=== PATIENT | female | born 1940 | race Caucasian/White ===

== ENCOUNTER 2017-10-29 20:39 | Inpatient (IN) | payer MEDICARE ==
[~2017-10-29] VITALS: Ht 162.6 cm; Wt 55.5 kg
[~2017-10-29 20:39] MED LIST: ACID1TAB7 PO; AMIO200T PO; AMLO2.5T PO; AMLO5TAB2 PO; AMLO5TAB4 PO; AMOX250S6 PO; ASPI-621 PO; BISA10SU65 PR; CEFD300C37 PO; CIPR500T87 PO; CYCL-259 PO; CYCL5TAB PO; DOCU-131 PO; ENOX40SY4 SQ; ERGO500017 PO; FENT1PAT74 PO; FENT1PAT74 TD; FERR325T18 PO; FURO-92 PO; GABA-826 PO; GABA300C10 PO; HYDR-3237 PO; HYDR473S51 PO; LEVO500T8 PO; LEVO50TA PO; LEVO750T26 PO; LISI-170 PO; LORA-445 PO; LORA-446 PO; LORA0.5T PO; METH2.5T PO; METO-95 PO; METO25TA35 PO; METO50TA82 PO; METR500T8 PO; MONT10TA9 PO; NYST1000 PO; OMEP10CA4 PO; ONDA4TAB7 PO; OXYC1TAB7 PO; OXYC5POW PO; PANT40TA3 PO; POLY17PO5 PO; POTA20TA14 PO; PRED-298 PO; SENN1TAB7 PO; SERT100T PO; SERT50TA PO; VANC250C12 PO; [UNRECOGNIZED DRUG - CODE] PO
[2017-10-29] MEDS ORDERED: SODIUM CHLORIDE 0.9% 1,000 ML IV ONE (21:46)
[2017-10-29] MEDS ORDERED: ACETAMINOPHEN 325 MG TABLET PO ONE (22:00)
[2017-10-29] MEDS ORDERED: ACETAMINOPHEN 325 MG TABLET ONE (22:16)
[2017-10-29 22:21] LABS: HEMOGLOBIN 13.3 g/dL (11.7-16.4); WHITE BLOOD COUNT 4.7 x10^3/uL (3.4-10)
[2017-10-29] MEDS ORDERED: NALOXONE 0.4 MG/ML, 1ML ONE (22:25)
[2017-10-29] MEDS ORDERED: SODIUM CHLORIDE 0.9% 1,000ML IVBOLUS ONE (22:30)
[2017-10-29] MEDS ORDERED: NALOXONE 0.4 MG/ML, 1ML IVPush ONE (22:30)
[2017-10-29 22:35] LABS: IS PT STATUS REG ER OR PRE ER? YES
[2017-10-29 22:40] LABS: ASPARTATE AMINO TRANSFERASE 17 U/L (15-37); BLOOD UREA NITROGEN 13 mg/dL (7-18)
[2017-10-29] MEDS ORDERED: CEFTRIAXONE PMX 1GM/50ML 50 ML ONE (23:13)
[2017-10-29] MEDS ORDERED: CEFTRIAXONE PMX 1GM/50ML 50 ML IVPB ONE (23:30)
[2017-10-29] MEDS ORDERED: AZITHROMYCIN 500 MG in SODIUM CHLORIDE 0.9% 250 ML IVPB ONE (23:30)
[2017-10-29 23:33] LABS: RAPID INFLUENZA A Negative (Negative); RAPID INFLUENZA B Negative (Negative)
[2017-10-30] MEDS ORDERED: POLYETHYLENE GLYCOL 17 GM PACKET PO PRN (00:30)
[2017-10-30] MEDS: MONTELUKAST 10 MG TABLET PO SCH ×2 (00:30→21:09)
[2017-10-30] MEDS: GABAPENTIN 300 MG CAPSULE PO SCH ×4 (00:30→21:09)
[2017-10-30] MEDS: LACTOBACILLUS CHEW TABLET PO SCH ×4 (00:30→21:08)
[2017-10-30] MEDS ORDERED: BISACODYL 10 MG SUPP PR PRN (00:30)
[2017-10-30] MEDS: AZITHROMYCIN 500 MG in SODIUM CHLORIDE 0.9% 250 ML IV SCH (00:31)
[2017-10-30] MEDS: CEFTRIAXONE PMX 1GM/50ML 50 ML IV SCH (00:31)
[2017-10-30] MEDS: SODIUM CHLORIDE 0.9% 1,000 ML IV SCH ×2 (01:04→15:11)
[2017-10-30] MEDS: HEPARIN 5,000 UNITS/ML, 1ML SQ SCH ×3 (01:06→16:18)
[2017-10-30 02:13] VITALS: BP 114/72
[2017-10-30 05:35] LABS: HEMATOCRIT 40.9 % (34.6-47.8); HEMOGLOBIN 13.5 g/dL (11.7-16.4); WHITE BLOOD COUNT 4.4 x10^3/uL (3.4-10)
[2017-10-30 05:57] LABS: BLOOD UREA NITROGEN 11 mg/dL (7-18)
[2017-10-30 06:01] LABS: ASPARTATE AMINO TRANSFERASE 73 U/L (15-37)
[2017-10-30] MEDS: ASPIRIN 81 MG TABLET EC PO SCH (06:23)
[2017-10-30] MEDS: LEVOTHYROXINE 50 MCG TABLET PO SCH (06:23)
[2017-10-30] MEDS ORDERED: METHOTREXATE 2.5 MG TABLET PO SCH (08:00)
[2017-10-30] MEDS: ONDANSETRON 2MG/ML, 2ML IVPush PRN ×2 (08:07→19:29)
[2017-10-30] MEDS: SENNA/DOCUSATE TABLET PO SCH (08:41)
[2017-10-30] MEDS: SERTRALINE 50MG TABLET PO SCH (08:43)
[2017-10-30] MEDS: METOPROLOL TARTRATE 25 MG TABLET PO SCH ×2 (08:43→21:09)
[2017-10-30] MEDS: ERGOCALCIFEROL 50,000 UNIT CAPSULE PO SCH (08:43)
[2017-10-30] MEDS: AMLODIPINE 5 MG TABLET PO SCH (08:43)
[2017-10-30] MEDS ORDERED: POTASSIUM CHLORIDE 20 MEQ TAB.ER.PRT PO SCH (09:00)
[2017-10-30 09:26] VITALS: BP 128/71
[2017-10-30 14:39] VITALS: BP 123/70
[2017-10-30] MEDS ORDERED: METHOTREXATE 2.5 MG TABLET PO ONE (20:00)
[2017-10-30 20:06] VITALS: BP 149/76
[2017-10-30] MEDS: ACETAMINOPHEN 325 MG TABLET PO PRN (22:09)
[2017-10-31] MEDS: HEPARIN 5,000 UNITS/ML, 1ML SQ SCH ×3 (00:22→17:10)
[2017-10-31] MEDS: CEFTRIAXONE PMX 1GM/50ML 50 ML IV SCH ×2 (00:22→23:59)
[2017-10-31] MEDS: AZITHROMYCIN 500 MG in SODIUM CHLORIDE 0.9% 250 ML IV SCH (00:30)
[2017-10-31 02:40] VITALS: BP 136/72
[2017-10-31] MEDS: LEVOTHYROXINE 50 MCG TABLET PO SCH (05:19)
[2017-10-31] MEDS: ASPIRIN 81 MG TABLET EC PO SCH (05:19)
[2017-10-31] MEDS: SODIUM CHLORIDE 0.9% 1,000 ML IV SCH ×2 (05:20→16:19)
[2017-10-31 07:08] VITALS: BP 162/75
[2017-10-31 08:58] VITALS: BP 143/83
[2017-10-31] MEDS: SERTRALINE 50MG TABLET PO SCH (08:59)
[2017-10-31] MEDS: AMLODIPINE 5 MG TABLET PO SCH (09:00)
[2017-10-31] MEDS: GABAPENTIN 300 MG CAPSULE PO SCH ×3 (09:00→22:22)
[2017-10-31] MEDS: SENNA/DOCUSATE TABLET PO SCH (09:00)
[2017-10-31] MEDS: LACTOBACILLUS CHEW TABLET PO SCH ×3 (09:01→22:22)
[2017-10-31] MEDS: METOPROLOL TARTRATE 25 MG TABLET PO SCH ×2 (09:01→22:22)
[2017-10-31 13:40] VITALS: BP 127/75
[2017-10-31 20:17] VITALS: BP 147/73
[2017-10-31] MEDS ORDERED: ZOLPIDEM 5MG TABLET PO PRN (22:00)
[2017-10-31] MEDS: MONTELUKAST 10 MG TABLET PO SCH (22:22)
[2017-11-01] MEDS: AZITHROMYCIN 500 MG in SODIUM CHLORIDE 0.9% 250 ML IV SCH (01:03)
[2017-11-01 02:12] VITALS: BP 149/79
[2017-11-01] MEDS: ACETAMINOPHEN 325 MG TABLET PO PRN (03:00)
[2017-11-01] MEDS: ASPIRIN 81 MG TABLET EC PO SCH (05:38)
[2017-11-01] MEDS: LEVOTHYROXINE 50 MCG TABLET PO SCH (05:39)
[2017-11-01] MEDS: SODIUM CHLORIDE 0.9% 1,000 ML IV SCH (05:42)
[2017-11-01 05:54] LABS: BLOOD UREA NITROGEN 8 mg/dL (7-18)
[2017-11-01 08:45] VITALS: BP 119/72
[2017-11-01] MEDS: SENNA/DOCUSATE TABLET PO SCH (09:00)
[2017-11-01] MEDS: LACTOBACILLUS CHEW TABLET PO SCH ×3 (09:03→19:30)
[2017-11-01] MEDS: AMLODIPINE 5 MG TABLET PO SCH (09:03)
[2017-11-01] MEDS: GABAPENTIN 300 MG CAPSULE PO SCH ×3 (09:03→22:19)
[2017-11-01] MEDS: METOPROLOL TARTRATE 25 MG TABLET PO SCH ×2 (09:03→19:30)
[2017-11-01] MEDS: SERTRALINE 50MG TABLET PO SCH (09:03)
[2017-11-01] MEDS: HEPARIN 5,000 UNITS/ML, 1ML SQ SCH ×3 (09:04→17:44)
[2017-11-01 13:15] VITALS: BP 158/71
[2017-11-01] MEDS: ONDANSETRON 2MG/ML, 2ML IVPush PRN (14:20)
[2017-11-01] MEDS ORDERED: MAGNESIUM SULFATE PMX 2GM/50ML 50 ML IV ONE ×2 (17:00→20:30)
[2017-11-01] MEDS: D5%-0.9% NACL+KCL 20MEQ 1,000 ML IV SCH (18:15)
[2017-11-01] MEDS: MONTELUKAST 10 MG TABLET PO SCH (19:30)
[2017-11-01 21:05] VITALS: BP 133/77
[2017-11-01] MEDS: GUAIFENESIN/DM 200-20MG, 10ML UDC PO PRN (22:18)
[2017-11-02] MEDS: ACETAMINOPHEN 325 MG TABLET PO PRN ×2 (00:07→21:10)
[2017-11-02] MEDS: CEFTRIAXONE PMX 1GM/50ML 50 ML IV SCH (00:08)
[2017-11-02] MEDS: HEPARIN 5,000 UNITS/ML, 1ML SQ SCH ×3 (01:59→18:51)
[2017-11-02] MEDS: AZITHROMYCIN 500 MG in SODIUM CHLORIDE 0.9% 250 ML IV SCH (01:59)
[2017-11-02 02:11] VITALS: BP 132/80
[2017-11-02] MEDS: ONDANSETRON 2MG/ML, 2ML IVPush PRN (05:24)
[2017-11-02] MEDS: LEVOTHYROXINE 50 MCG TABLET PO SCH (05:24)
[2017-11-02] MEDS: ASPIRIN 81 MG TABLET EC PO SCH (05:24)
[2017-11-02 07:29] VITALS: BP 154/86
[2017-11-02] MEDS: SENNA/DOCUSATE TABLET PO SCH (09:00)
[2017-11-02] MEDS: SERTRALINE 50MG TABLET PO SCH (11:02)
[2017-11-02] MEDS: GABAPENTIN 300 MG CAPSULE PO SCH ×3 (11:02→21:02)
[2017-11-02] MEDS: LACTOBACILLUS CHEW TABLET PO SCH ×3 (11:02→21:02)
[2017-11-02] MEDS: METOPROLOL TARTRATE 25 MG TABLET PO SCH ×2 (11:03→21:00)
[2017-11-02] MEDS: AMLODIPINE 5 MG TABLET PO SCH (11:04)
[2017-11-02] MEDS: LOPERAMIDE 2 MG CAPSULE PO PRN (12:25)
[2017-11-02] MEDS: D5%-0.9% NACL+KCL 20MEQ 1,000 ML IV SCH (12:25)
[2017-11-02] MEDS ORDERED: MAGNESIUM SULFATE PMX 2GM/50ML 50 ML IV ONE (12:30)
[2017-11-02 13:41] VITALS: BP 125/64
[2017-11-02 21:01] VITALS: BP 106/63
[2017-11-02] MEDS: MONTELUKAST 10 MG TABLET PO SCH (21:02)
[2017-11-03] MEDS: CEFTRIAXONE PMX 1GM/50ML 50 ML IV SCH (00:51)
[2017-11-03 01:28] VITALS: BP 111/60
[2017-11-03] MEDS: AZITHROMYCIN 500 MG in SODIUM CHLORIDE 0.9% 250 ML IV SCH (01:34)
[2017-11-03] MEDS: HEPARIN 5,000 UNITS/ML, 1ML SQ SCH ×3 (01:34→17:49)
[2017-11-03] MEDS: ASPIRIN 81 MG TABLET EC PO SCH (05:47)
[2017-11-03] MEDS: LEVOTHYROXINE 50 MCG TABLET PO SCH (05:47)
[2017-11-03 06:13] LABS: HEMATOCRIT 37.5 % (34.6-47.8); HEMOGLOBIN 12.2 g/dL (11.7-16.4); WHITE BLOOD COUNT 2.7 x10^3/uL (3.4-10)
[2017-11-03 06:17] LABS: BLOOD UREA NITROGEN 6 mg/dL (7-18)
[2017-11-03 08:11] VITALS: BP 117/62
[2017-11-03] MEDS: SENNA/DOCUSATE TABLET PO SCH (09:00)
[2017-11-03] MEDS: AMLODIPINE 5 MG TABLET PO SCH (09:38)
[2017-11-03] MEDS: ACETAMINOPHEN 325 MG TABLET PO PRN ×3 (09:38→21:40)
[2017-11-03] MEDS: GABAPENTIN 300 MG CAPSULE PO SCH ×3 (09:39→20:01)
[2017-11-03] MEDS: LOPERAMIDE 2 MG CAPSULE PO PRN (09:39)
[2017-11-03] MEDS: SERTRALINE 50MG TABLET PO SCH (09:40)
[2017-11-03] MEDS: LACTOBACILLUS CHEW TABLET PO SCH ×3 (09:40→20:01)
[2017-11-03] MEDS: METOPROLOL TARTRATE 25 MG TABLET PO SCH ×2 (09:40→20:01)
[2017-11-03 14:45] VITALS: BP 114/63
[2017-11-03] MEDS: ONDANSETRON 2MG/ML, 2ML IVPush PRN (18:02)
[2017-11-03 20:01] VITALS: BP 112/70
[2017-11-03] MEDS: MONTELUKAST 10 MG TABLET PO SCH (20:01)
[2017-11-03] MEDS: GUAIFENESIN/DM 200-20MG, 10ML UDC PO PRN (20:02)
[2017-11-04] MEDS: CEFTRIAXONE PMX 1GM/50ML 50 ML IV SCH (00:24)
[2017-11-04] MEDS: AZITHROMYCIN 500 MG in SODIUM CHLORIDE 0.9% 250 ML IV SCH (02:02)
[2017-11-04] MEDS: HEPARIN 5,000 UNITS/ML, 1ML SQ SCH ×3 (02:03→17:22)
[2017-11-04 02:06] VITALS: BP 111/62
[2017-11-04] MEDS: LEVOTHYROXINE 50 MCG TABLET PO SCH (06:09)
[2017-11-04] MEDS: ASPIRIN 81 MG TABLET EC PO SCH (06:09)
[2017-11-04 08:38] VITALS: BP 119/66
[2017-11-04] MEDS: SENNA/DOCUSATE TABLET PO SCH (09:00)
[2017-11-04] MEDS: LACTOBACILLUS CHEW TABLET PO SCH ×3 (09:42→19:50)
[2017-11-04] MEDS: SERTRALINE 50MG TABLET PO SCH (09:42)
[2017-11-04] MEDS: GABAPENTIN 300 MG CAPSULE PO SCH ×3 (09:42→19:50)
[2017-11-04] MEDS: AMLODIPINE 5 MG TABLET PO SCH (09:42)
[2017-11-04] MEDS: METOPROLOL TARTRATE 25 MG TABLET PO SCH ×2 (09:43→19:50)
[2017-11-04 13:30] VITALS: BP 110/56
[2017-11-04] MEDS: ACETAMINOPHEN 325 MG TABLET PO PRN (15:48)
[2017-11-04 19:38] VITALS: BP 107/60
[2017-11-04] MEDS: GUAIFENESIN/DM 200-20MG, 10ML UDC PO PRN (19:50)
[2017-11-04] MEDS: MONTELUKAST 10 MG TABLET PO SCH (19:50)
[2017-11-05] MEDS: CEFTRIAXONE PMX 1GM/50ML 50 ML IV SCH (00:09)
[2017-11-05 00:41] VITALS: BP 109/63
[2017-11-05] MEDS: HEPARIN 5,000 UNITS/ML, 1ML SQ SCH ×3 (00:48→16:22)
[2017-11-05] MEDS: ACETAMINOPHEN 325 MG TABLET PO PRN ×2 (00:48→17:35)
[2017-11-05 02:52] LABS: HEMATOCRIT 35.6 % (34.6-47.8); HEMOGLOBIN 11.5 g/dL (11.7-16.4); WHITE BLOOD COUNT 3.2 x10^3/uL (3.4-10)
[2017-11-05 03:02] LABS: BLOOD UREA NITROGEN 9 mg/dL (7-18)
[2017-11-05] MEDS: ASPIRIN 81 MG TABLET EC PO SCH (06:09)
[2017-11-05] MEDS: LEVOTHYROXINE 50 MCG TABLET PO SCH (06:11)
[2017-11-05 06:55] VITALS: BP 125/77
[2017-11-05] MEDS: SENNA/DOCUSATE TABLET PO SCH (09:00)
[2017-11-05] MEDS: GABAPENTIN 300 MG CAPSULE PO SCH ×3 (09:00→21:01)
[2017-11-05] MEDS: LOPERAMIDE 2 MG CAPSULE PO PRN (09:00)
[2017-11-05] MEDS: LACTOBACILLUS CHEW TABLET PO SCH ×3 (09:01→21:01)
[2017-11-05] MEDS: METOPROLOL TARTRATE 25 MG TABLET PO SCH ×2 (09:01→21:01)
[2017-11-05] MEDS: SERTRALINE 50MG TABLET PO SCH (09:01)
[2017-11-05] MEDS: AMLODIPINE 5 MG TABLET PO SCH (09:01)
[2017-11-05 12:45] VITALS: BP 117/74
[2017-11-05] MEDS: ONDANSETRON 2MG/ML, 2ML IVPush PRN (16:19)
[2017-11-05 20:57] VITALS: BP 107/67
[2017-11-05] MEDS: MONTELUKAST 10 MG TABLET PO SCH (21:01)
[2017-11-06] MEDS: CEFTRIAXONE PMX 1GM/50ML 50 ML IV SCH (00:28)
[2017-11-06] MEDS: HEPARIN 5,000 UNITS/ML, 1ML SQ SCH ×3 (00:28→17:30)
[2017-11-06 02:01] VITALS: BP 94/59
[2017-11-06 03:15] VITALS: BP 104/69
[2017-11-06] MEDS: ASPIRIN 81 MG TABLET EC PO SCH (06:54)
[2017-11-06] MEDS: LEVOTHYROXINE 50 MCG TABLET PO SCH (06:54)
[2017-11-06] MEDS ORDERED: METHOTREXATE 2.5 MG TABLET PO SCH (08:00)
[2017-11-06 08:15] VITALS: BP 118/76
[2017-11-06] MEDS: SENNA/DOCUSATE TABLET PO SCH (09:00)
[2017-11-06] MEDS: GABAPENTIN 300 MG CAPSULE PO SCH ×2 (10:42→17:50)
[2017-11-06] MEDS: SERTRALINE 50MG TABLET PO SCH (10:43)
[2017-11-06] MEDS: AMLODIPINE 5 MG TABLET PO SCH (10:43)
[2017-11-06] MEDS: METOPROLOL TARTRATE 25 MG TABLET PO SCH (10:43)
[2017-11-06] MEDS: LACTOBACILLUS CHEW TABLET PO SCH ×2 (10:44→16:00)
[2017-11-06] MEDS: ERGOCALCIFEROL 50,000 UNIT CAPSULE PO SCH (10:49)
[2017-11-06 15:07] VITALS: BP 110/72
== END 2017-11-06 18:15 | disposition home health service (06) | DRG 91 ==
LOC: ED 23:53 → EDIP 23:57 → 4NOR 10-30 00:48
PROVIDERS: ADMIT Surgery; ATTEND Surgery
DX: G92 Toxic encephalopathy (principal); J15.9 Unspecified bacterial pneumonia; D68.69 Other thrombophilia; E86.0 Dehydration; I48.2 Chronic atrial fibrillation; E11.9 Type 2 diabetes mellitus without complications; G40.909 Epilepsy, unspecified, not intractable, without status epilepticus; E03.9 Hypothyroidism, unspecified; I10 Essential (primary) hypertension; M06.9 Rheumatoid arthritis, unspecified; M81.0 Age-related osteoporosis without current pathological fracture; Z86.73 Personal history of transient ischemic attack (TIA), and cerebral infarction without residual deficits; Z87.01 Personal history of pneumonia (recurrent); Z96.653 Presence of artificial knee joint, bilateral
CPT/HCPCS: 36415; 70450; 71010; 80048; 80053; 80307; 81003; 82140; 83735; 83880; 84100; 84484; 85025; 87040; 87070; 87205; 87324; 87400; 93005; 96361; 96365; 96375; J0456; J0696; J1644; J2310; J2405; J8610; G0479; J3475; J3480; J7030; J7050; J7512

== ENCOUNTER 2018-04-14 01:12 | Inpatient (IN) | payer MEDICARE ==
[~2018-04-14] VITALS: Ht 157.5 cm; Wt 59.0 kg
[2018-04-14] MEDS ORDERED: MORPHINE SULFATE 4 MG/ML, 1ML IVPush PRN ×2 (01:30→05:30)
[2018-04-14] MEDS ORDERED: PROPOFOL 10 MG/ML, 20ML IVPush ONE (01:30)
[2018-04-14] MEDS ORDERED: KETAMINE 10 MG/ML, 20ML IV ONE (01:30)
[2018-04-14] MEDS ORDERED: MORPHINE SULFATE 4 MG/ML, 1ML ONE (01:44)
[2018-04-14] MEDS ORDERED: PROPOFOL 10 MG/ML, 20ML ONE (01:44)
[2018-04-14] MEDS ORDERED: ONDANSETRON ODT 4 MG ONE (02:21)
[2018-04-14] MEDS ORDERED: SODIUM CHLORIDE 0.9% 1,000 ML IV ONE (02:55)
[2018-04-14 03:00] VITALS: BP 154/83
[2018-04-14] MEDS ORDERED: SODIUM CHLORIDE FLUSH 10ML SYR IVF ONE (03:00)
[2018-04-14] MEDS ORDERED: BIFI4CAP PO (03:02)
[2018-04-14] MEDS ORDERED: OXYC20TA42 PO (03:02)
[2018-04-14] MEDS ORDERED: OMEP-110 PO (03:02)
[2018-04-14] MEDS ORDERED: FOLI-17 PO (03:02)
[2018-04-14] MEDS ORDERED: PRED2.5T PO (03:02)
[2018-04-14] MEDS ORDERED: VITA1CAP PO (03:02)
[2018-04-14 03:14] LABS: BASOPHILS # (AUTO) 0.04 x10^3/uL (0-0.1); BASOPHILS % (AUTO) 0 % (0-1); EOSINOPHILS # (AUTO) 0.12 x10^3/uL (0-0.4); EOSINOPHILS % (AUTO) 1 % (1-7); LYMPHOCYTES # (AUTO) 1.42 x10^3/uL (1-3.4); LYMPHOCYTES % (AUTO) 11 % (22-44); MD NO; MEAN CORPUSCULAR HEMOGLOBIN 28.8 pg (27.0-34.8); MEAN CORPUSCULAR HGB CONC 32.6 g/dL (32.4-35.8); MEAN CORPUSCULAR VOLUME 88.3 fL (80-100); MEAN PLATELET VOLUME 8.8 fL (7.4-10.4); MONOCYTES % (AUTO) 6 % (2-9); NEUTROPHILS # (AUTO) 10.39 x10^3/uL (1.8-6.8); NEUTROPHILS % (AUTO) 82 % (42-75); PLATELET COUNT 232 x10^3/uL (130-400); RED BLOOD COUNT 4.32 x10^6/uL (3.82-5.3); RED CELL DISTRIBUTION WIDTH 18.6 % (9.6-15.2)
[2018-04-14 03:23] LABS: INTERNATIONAL NORMALIZED RATIO 0.98 (0.93-1.1); PROTHROMBIN TIME 10.1 Seconds (9.6-11.5)
[2018-04-14 03:25] LABS: ALBUMIN 3.2 g/dL (3.4-5.0); ANION GAP 5 mmol/L (5-15); CALCIUM 7.8 mg/dL (8.5-10.1); CHLORIDE 113 mmol/L (98-107); CREATININE 1.06 mg/dL (0.55-1.02)
[2018-04-14] MEDS ORDERED: ONDANSETRON ODT 4 MG PO ONE (03:30)
[2018-04-14] MEDS ORDERED: KETAMINE 100 MG/ML, 5ML IV ONE (04:00)
[2018-04-14] MEDS ORDERED: NS + 20MEQ KCL 1,000 ML IV SCH (05:35)
[2018-04-14] MEDS: LEVOTHYROXINE 50 MCG TABLET PO SCH (05:58)
[2018-04-14] MEDS ORDERED: POLYETHYLENE GLYCOL 17 GM PACKET PO PRN (06:00)
[2018-04-14] MEDS ORDERED: ACETAMINOPHEN 325 MG TABLET PO PRN (06:00)
[2018-04-14] MEDS ORDERED: ONDANSETRON 2MG/ML, 2ML IVPush PRN (06:00)
[2018-04-14] MEDS ORDERED: ENALAPRILAT 1.25 MG/ML, 2ML IV PRN (06:00)
[2018-04-14] MEDS ORDERED: DOCUSATE 100 MG CAPSULE PO PRN (06:00)
[2018-04-14] MEDS ORDERED: hydrALAzine 20 MG/ML, 1ML IV PRN (06:00)
[2018-04-14] MEDS: INSULIN LISPRO 100 UNITS/ML, PEN SQ-INSULIN SCH ×4 (06:53→20:51)
[2018-04-14 08:42] VITALS: BP 134/65
[2018-04-14] MEDS: FLORASTOR 250 MG CAPSULE PO SCH (09:13)
[2018-04-14] MEDS: LACTOBACILLUS CHEW TABLET PO SCH ×3 (09:13→20:45)
[2018-04-14] MEDS: SERTRALINE 50MG TABLET PO SCH (09:13)
[2018-04-14] MEDS: MULTIVITS,STRESS FORMULA 1 TABLET PO SCH (09:13)
[2018-04-14] MEDS: FAMOTIDINE 20 MG TABLET PO SCH ×2 (09:13→20:45)
[2018-04-14] MEDS: SENNA/DOCUSATE TABLET PO SCH (09:14)
[2018-04-14] MEDS: OxyconTIN ER 20 MG TAB.ER PO SCH ×2 (09:15→20:45)
[2018-04-14] MEDS: FOLIC ACID 1 MG TABLET PO SCH (09:15)
[2018-04-14] MEDS: METOPROLOL TARTRATE 25 MG TABLET PO SCH ×2 (09:31→20:45)
[2018-04-14 13:48] VITALS: BP 120/70
[2018-04-14] MEDS: ENOXAPARIN 40 MG/0.4 ML SQ SCH (17:02)
[2018-04-14 20:06] VITALS: BP 117/58
[2018-04-15 02:57] VITALS: BP 94/54
[2018-04-15] MEDS: OXYcodone IR 5MG TABLET PO PRN ×4 (03:24→18:43)
[2018-04-15] MEDS: LEVOTHYROXINE 50 MCG TABLET PO SCH ×2 (05:50→06:00)
[2018-04-15] MEDS: INSULIN LISPRO 100 UNITS/ML, PEN SQ-INSULIN SCH ×4 (06:08→21:00)
[2018-04-15] MEDS: SENNA/DOCUSATE TABLET PO SCH (09:00)
[2018-04-15] MEDS: METOPROLOL TARTRATE 25 MG TABLET PO SCH ×2 (09:00→20:34)
[2018-04-15] MEDS: LACTOBACILLUS CHEW TABLET PO SCH ×3 (09:00→20:34)
[2018-04-15] MEDS: MULTIVITS,STRESS FORMULA 1 TABLET PO SCH (09:00)
[2018-04-15] MEDS: FAMOTIDINE 20 MG TABLET PO SCH ×2 (09:00→20:34)
[2018-04-15] MEDS: SERTRALINE 50MG TABLET PO SCH (09:00)
[2018-04-15] MEDS: OxyconTIN ER 20 MG TAB.ER PO SCH ×2 (09:13→20:34)
[2018-04-15] MEDS: FOLIC ACID 1 MG TABLET PO SCH (09:13)
[2018-04-15] MEDS: FLORASTOR 250 MG CAPSULE PO SCH (09:14)
[2018-04-15 13:04] VITALS: BP 104/51
[2018-04-15] MEDS: ENOXAPARIN 40 MG/0.4 ML SQ SCH (16:20)
[2018-04-15 19:00] VITALS: BP 142/65
[2018-04-15] MEDS: morphine SULFATE 10 MG/ML, 1ML IVPush PRN (20:34)
[2018-04-15 23:33] VITALS: BP 155/76
[2018-04-16] MEDS: morphine SULFATE 10 MG/ML, 1ML IVPush PRN (02:15)
[2018-04-16 05:06] LABS: BASOPHILS # (AUTO) 0.04 x10^3/uL (0-0.1); BASOPHILS % (AUTO) 1 % (0-1); EOSINOPHILS # (AUTO) 0.11 x10^3/uL (0-0.4); EOSINOPHILS % (AUTO) 1 % (1-7); LYMPHOCYTES # (AUTO) 0.94 x10^3/uL (1-3.4); LYMPHOCYTES % (AUTO) 12 % (22-44); MD NO; MEAN CORPUSCULAR HEMOGLOBIN 29.7 pg (27.0-34.8); MEAN CORPUSCULAR HGB CONC 33.7 g/dL (32.4-35.8); MEAN CORPUSCULAR VOLUME 88.1 fL (80-100); MEAN PLATELET VOLUME 9.3 fL (7.4-10.4); MONOCYTES # (AUTO) 1.01 x10^3/uL (0.2-0.8); MONOCYTES % (AUTO) 12 % (2-9); NEUTROPHILS # (AUTO) 6.08 x10^3/uL (1.8-6.8); NEUTROPHILS % (AUTO) 74 % (42-75); PLATELET COUNT 142 x10^3/uL (130-400); RED BLOOD COUNT 3.31 x10^6/uL (3.82-5.3)
[2018-04-16 05:26] LABS: CHLORIDE 107 mmol/L (98-107)
[2018-04-16 05:55] LABS: MICROSCOPIC NOT IND
[2018-04-16 05:58] LABS: CULTURE INDICATED? NO
[2018-04-16 06:16] LABS: ANION GAP 8 mmol/L (5-15); CALCIUM 8.4 mg/dL (8.5-10.1); CREATININE 0.92 mg/dL (0.55-1.02)
[2018-04-16] MEDS: LEVOTHYROXINE 50 MCG TABLET PO SCH (06:19)
[2018-04-16] MEDS: OXYcodone IR 5MG TABLET PO PRN ×2 (06:19→13:53)
[2018-04-16] MEDS: INSULIN LISPRO 100 UNITS/ML, PEN SQ-INSULIN SCH ×4 (06:23→19:39)
[2018-04-16] MEDS: SENNA/DOCUSATE TABLET PO SCH (08:25)
[2018-04-16] MEDS: SERTRALINE 50MG TABLET PO SCH (08:25)
[2018-04-16] MEDS: LACTOBACILLUS CHEW TABLET PO SCH ×3 (08:25→21:01)
[2018-04-16] MEDS: FAMOTIDINE 20 MG TABLET PO SCH ×2 (08:26→21:02)
[2018-04-16] MEDS: FOLIC ACID 1 MG TABLET PO SCH (08:26)
[2018-04-16] MEDS: MULTIVITS,STRESS FORMULA 1 TABLET PO SCH (08:26)
[2018-04-16] MEDS: FLORASTOR 250 MG CAPSULE PO SCH (08:26)
[2018-04-16] MEDS: METOPROLOL TARTRATE 25 MG TABLET PO SCH ×2 (08:26→21:01)
[2018-04-16] MEDS: OxyconTIN ER 20 MG TAB.ER PO SCH ×2 (08:27→21:02)
[2018-04-16] MEDS: ACETAMINOPHEN 500 MG TABLET PO SCH ×3 (09:00→21:01)
[2018-04-16 09:07] VITALS: BP 172/73
[2018-04-16 13:43] VITALS: BP 117/74
[2018-04-16] MEDS: ENOXAPARIN 40 MG/0.4 ML SQ SCH (18:01)
[2018-04-16 20:00] VITALS: BP 138/76
[2018-04-17 02:30] VITALS: BP 167/96
[2018-04-17] MEDS: ACETAMINOPHEN 500 MG TABLET PO SCH ×4 (03:00→15:17)
[2018-04-17] MEDS: LEVOTHYROXINE 50 MCG TABLET PO SCH (05:40)
[2018-04-17] MEDS: INSULIN LISPRO 100 UNITS/ML, PEN SQ-INSULIN SCH ×3 (06:35→16:04)
[2018-04-17 06:55] VITALS: BP 161/79
[2018-04-17] MEDS: LACTOBACILLUS CHEW TABLET PO SCH ×3 (08:42→15:23)
[2018-04-17] MEDS: FAMOTIDINE 20 MG TABLET PO SCH (08:42)
[2018-04-17] MEDS: FLORASTOR 250 MG CAPSULE PO SCH (08:42)
[2018-04-17] MEDS: SERTRALINE 50MG TABLET PO SCH (08:42)
[2018-04-17] MEDS: MULTIVITS,STRESS FORMULA 1 TABLET PO SCH (08:42)
[2018-04-17] MEDS: METOPROLOL TARTRATE 25 MG TABLET PO SCH (08:42)
[2018-04-17] MEDS: SENNA/DOCUSATE TABLET PO SCH (08:42)
[2018-04-17] MEDS: OxyconTIN ER 20 MG TAB.ER PO SCH (08:42)
[2018-04-17] MEDS: FOLIC ACID 1 MG TABLET PO SCH (08:43)
[2018-04-17] MEDS ORDERED: POLYETHYLENE GLYCOL 17 GM PACKET PO SCH (10:00)
[2018-04-17] MEDS ORDERED: DOCUSATE 100 MG CAPSULE PO SCH (10:00)
[2018-04-17] MEDS ORDERED: ENOX40SY4 SQ (11:33)
[2018-04-17] MEDS ORDERED: DOCU-131 PO (11:33)
[2018-04-17] MEDS ORDERED: POLY17PO5 PO (11:33)
[2018-04-17] MEDS ORDERED: ACET500T71 PO (11:33)
[2018-04-17 14:16] VITALS: BP 150/71
[2018-04-17] MEDS: ENOXAPARIN 40 MG/0.4 ML SQ SCH (16:05)
[2018-04-17] MEDS: OXYcodone IR 5MG TABLET PO PRN (17:21)
== END 2018-04-17 17:48 | DRG 542 ==
LOC: ED 02:49 → EDIP 02:55 → 4NOR 05:07
PROVIDERS: ADMIT Family Medicine; ATTEND Family Medicine
PROC: 0JQG3ZZ Repair Right Lower Arm Subcutaneous Tissue and Fascia, Percutaneous Approach (ICD-10-PCS; 2018-04-14)
PROC: 2W38X1Z Immobilization of Right Upper Extremity using Splint (ICD-10-PCS; 2018-04-14)
PROC: 0PSCXZZ Reposition Right Humeral Head, External Approach (ICD-10-PCS; 2018-04-14)
PROC: 2W3CX1Z Immobilization of Right Lower Arm using Splint (ICD-10-PCS; 2018-04-14)
PROC: 0T9B70Z Drainage of Bladder with Drainage Device, Via Natural or Artificial Opening (ICD-10-PCS; principal; 2018-04-16)
DX: M80.021A Age-related osteoporosis with current pathological fracture, right humerus, initial encounter for fracture (principal); G93.40 Encephalopathy, unspecified; E44.0 Moderate protein-calorie malnutrition; D68.69 Other thrombophilia; S42.291A Other displaced fracture of upper end of right humerus, initial encounter for closed fracture; E11.9 Type 2 diabetes mellitus without complications; G40.909 Epilepsy, unspecified, not intractable, without status epilepticus; I48.2 Chronic atrial fibrillation; E03.9 Hypothyroidism, unspecified; G89.11 Acute pain due to trauma; I10 Essential (primary) hypertension; M06.9 Rheumatoid arthritis, unspecified; M75.100 Unspecified rotator cuff tear or rupture of unspecified shoulder, not specified as traumatic; M81.0 Age-related osteoporosis without current pathological fracture; S51.811A Laceration without foreign body of right forearm, initial encounter; W18.09XA Striking against other object with subsequent fall, initial encounter; Y93.01 Activity, walking, marching and hiking; Z66 Do not resuscitate; Z79.52 Long term (current) use of systemic steroids; Z86.73 Personal history of transient ischemic attack (TIA), and cerebral infarction without residual deficits; Z87.01 Personal history of pneumonia (recurrent); Z87.81 Personal history of (healed) traumatic fracture; Z91.81 History of falling; Z96.653 Presence of artificial knee joint, bilateral; Z68.23 Body mass index [BMI] 23.0-23.9, adult; Y92.89 Other specified places as the place of occurrence of the external cause; Y99.8 Other external cause status
CPT/HCPCS: 12002; 23675; 36415; 80048; 81003; 82040; 82962; 85025; 85610; 85730; 96361; 96374; 99152; 99153; J1650; J2704; J3480; Q0162; J2270; J7030; J7512

== ENCOUNTER 2019-03-09 16:36 | Inpatient (IN) | payer MEDICARE ==
[~2019-03-09] VITALS: Ht 154.9 cm; Wt 71.6 kg
[~2019-03-09 16:36] MED LIST changes: +ACET500T71 PO; +AMLO-150 PO; -AMLO2.5T PO; +AMLO2.5T5 PO; -AMLO5TAB2 PO; -ASPI-621 PO; +ASPI81TA45 PO; +BIFI4CAP PO; +FOLI-17 PO; +METR-90 PO; -METR500T8 PO; +OMEP-110 PO; +OXYC20TA42 PO; +PRED2.5T PO; +SENN-177 PO; -SENN1TAB7 PO; +VITA1CAP PO
--- NOTE | 2019-03-09 17:13 | NUR ---
pt to ed for mechanical glf today. hematoma to r elbow and pain to right ribs and bilateral hips. connected to monitors. htn, all other vss on 6L nc. pt non compliant with home o2 order. ra sat 88%. edmd assessmetn complete. orders received. pt at imaging at this time.
[2019-03-09] MEDS ORDERED: morphine SULFATE 10 MG/ML, 1ML IVPush ONE ×2 (17:30→18:30)
[2019-03-09] MEDS ORDERED: MORPHINE SULFATE 4 MG/ML, 1ML ONE (17:37)
--- NOTE | 2019-03-09 17:46 | NUR ---
TASK RN NOTE: PIV PLACED, PT MEDICATED PER EMAR FOR 8/10 RIGHT HIP PAIN. PT WAS WEARING OXYGEN AT 4L/MIN PRIOR TO MORPHINE ADMIN, SPO2 DECREASED TO 89% AFTER MORPHINE ADMIN. OXGYEN INCREASED TO 5L/MIN VIA NC, SATURATNG 91-92% AT THIS TIME. PT'S FAMILY AT BEDSIDE, PT A&O, RESPS EVEN AND UNLABORED. ALL RESULTS BACK, CHART UP FOR RECHECK. AWAITING MD AND DISPO AT THIS TIME.
--- NOTE | 2019-03-09 17:48 | NUR ---
PT REPORTS PAIN IMPROVING TO RIGHT HIP.
--- NOTE | 2019-03-09 17:52 | NUR ---
EDMD TO BS TO UPDATE ON POC.
[2019-03-09] MEDS ORDERED: OXYC10TA6 PO (18:05)
[2019-03-09] MEDS ORDERED: MULT-750 PO (18:05)
--- NOTE | 2019-03-09 18:09 | NUR ---
dr james spoke with dr rahman
--- NOTE | 2019-03-09 18:31 | NUR ---
LAB AT BEDSIDE
[2019-03-09 18:48] LABS: BASOPHILS # (AUTO) 0.01 x10^3/uL (0-0.1); BASOPHILS % (AUTO) 0 % (0-1); EOSINOPHILS # (AUTO) 0.09 x10^3/uL (0-0.4); EOSINOPHILS % (AUTO) 1 % (1-7); LYMPHOCYTES # (AUTO) 1.33 x10^3/uL (1-3.4); LYMPHOCYTES % (AUTO) 10 % (22-44); MD NO; MEAN CORPUSCULAR HEMOGLOBIN 30.3 pg (27.0-34.8); MEAN CORPUSCULAR VOLUME 91.9 fL (80-100); MEAN PLATELET VOLUME 7.8 fL (7.4-10.4); MONOCYTES # (AUTO) 0.61 x10^3/uL (0.2-0.8); MONOCYTES % (AUTO) 5 % (2-9); NEUTROPHILS # (AUTO) 10.94 x10^3/uL (1.8-6.8); NEUTROPHILS % (AUTO) 84 % (42-75); PLATELET COUNT 249 x10^3/uL (130-400); RED CELL DISTRIBUTION WIDTH 15.4 % (9.6-15.2)
[2019-03-09 18:59] LABS: INTERNATIONAL NORMALIZED RATIO 0.98 (0.93-1.1); PROTHROMBIN TIME 10.3 Seconds (9.6-11.5)
[2019-03-09 19:00] LABS: ALANINE AMINOTRANSFERASE 29 U/L (12-78); ALBUMIN 3.2 g/dL (3.4-5.0); ANION GAP 8 mmol/L (5-15); CHLORIDE 104 mmol/L (98-107); CREATININE 1.01 mg/dL (0.55-1.02)
[2019-03-09] MEDS ORDERED: ONDANSETRON 2MG/ML, 2ML ONE (19:02)
[2019-03-09 19:03] LABS: ALKALINE PHOSPHATASE 88 U/L (45-117); BILIRUBIN,TOTAL 0.3 mg/dL (0.2-1.0); TOTAL PROTEIN 6.7 g/dL (6.4-8.2)
--- NOTE | 2019-03-09 19:03 | NUR ---
CT waiting on nausea meds - pt is N/V
--- NOTE | 2019-03-09 19:14 | NUR ---
Task RN: Given zofran per request and MD order. Awaiting CT at this time. No other immediate needs from PT.
--- NOTE | 2019-03-09 19:17 | NUR ---
Task RN:Hospitalist at bedside for POC update.
--- NOTE | 2019-03-09 19:25 | NUR ---
Task RN:Pt to CT.
[2019-03-09] MEDS ORDERED: ONDANSETRON 2MG/ML, 2ML IVPush ONE (19:30)
--- NOTE | 2019-03-09 19:58 | NUR ---
report to crystal philippe. 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
[2019-03-09 20:00] VITALS: BP 122/85
[2019-03-09] MEDS ORDERED: POLYETHYLENE GLYCOL 17 GM PACKET PO PRN (20:00)
[2019-03-09] MEDS ORDERED: LABETALOL 5MG/ML, 20ML IVPush PRN (20:00)
[2019-03-09] MEDS ORDERED: ACETAMINOPHEN 325 MG TABLET PO PRN (20:00)
[2019-03-09] MEDS ORDERED: BISACODYL 10 MG SUPP PR PRN (20:00)
[2019-03-09] MEDS ORDERED: HEPARIN 5,000 UNITS/ML, 1ML SQ SCH (20:00)
[2019-03-09] MEDS ORDERED: ONDANSETRON 2MG/ML, 2ML IVPush PRN (20:00)
[2019-03-09] MEDS ORDERED: OxyconTIN ER 10 MG TAB.ER ONE (21:39)
[2019-03-09] MEDS: OxyconTIN ER 20 MG TAB.ER PO SCH (22:20)
[2019-03-09] MEDS: HYDROmorphone 2 MG/ML, 1ML IVPush PRN (22:21)
[2019-03-09] MEDS: METOPROLOL TARTRATE 25 MG TABLET PO SCH (22:21)
[2019-03-10 01:02] VITALS: BP 107/72
[2019-03-10 05:22] VITALS: BP 104/68
[2019-03-10] MEDS: LEVOTHYROXINE 50 MCG TABLET PO SCH (05:35)
[2019-03-10] MEDS: OMEPRAZOLE 20 MG CAPSULE.DR PO SCH (05:35)
[2019-03-10] MEDS: SODIUM CHLORIDE 0.9% 1,000 ML IV SCH ×3 (05:35→21:15)
[2019-03-10] MEDS: HYDROmorphone 2 MG/ML, 1ML IVPush PRN ×4 (05:36→19:39)
[2019-03-10 05:45] LABS: MEAN CORPUSCULAR HEMOGLOBIN 29.7 pg (27.0-34.8); MEAN CORPUSCULAR HGB CONC 32.5 g/dL (32.4-35.8); MEAN CORPUSCULAR VOLUME 91.3 fL (80-100); MEAN PLATELET VOLUME 8.6 fL (7.4-10.4); PLATELET COUNT 203 x10^3/uL (130-400); RED BLOOD COUNT 4.14 x10^6/uL (3.82-5.3); RED CELL DISTRIBUTION WIDTH 15.5 % (9.6-15.2)
[2019-03-10 05:56] LABS: CHLORIDE 106 mmol/L (98-107)
[2019-03-10 06:02] LABS: ANION GAP 7 mmol/L (5-15); CALCIUM 7.8 mg/dL (8.5-10.1); CREATININE 1.68 mg/dL (0.55-1.02)
[2019-03-10 06:17] LABS: BASOPHILS % (AUTO) 0 % (0-1); EOSINOPHILS # (AUTO) 0.22 x10^3/uL (0-0.4); EOSINOPHILS % (AUTO) 1 % (1-7); LYMPHOCYTES # (AUTO) 1.25 x10^3/uL (1-3.4); LYMPHOCYTES % (AUTO) 6 % (22-44); MD SCAN; MONOCYTES % (AUTO) 8 % (2-9); NEUTROPHILS # (AUTO) 16.63 x10^3/uL (1.8-6.8); NEUTROPHILS % (AUTO) 85 % (42-75)
[2019-03-10 07:24] VITALS: BP 130/80
[2019-03-10] MEDS ORDERED: HEPARIN 5,000 UNITS/ML, 1ML IV ONE (07:30)
[2019-03-10] MEDS: FOLIC ACID 1 MG TABLET PO SCH (10:15)
[2019-03-10] MEDS: MULTIVITAMIN 1 TABLET PO SCH (10:17)
[2019-03-10] MEDS: OxyconTIN ER 20 MG TAB.ER PO SCH ×2 (10:18→21:14)
[2019-03-10] MEDS: METOPROLOL TARTRATE 25 MG TABLET PO SCH ×2 (10:19→21:14)
[2019-03-10] MEDS: SERTRALINE 50MG TABLET PO SCH (10:19)
[2019-03-10] MEDS: MULTIVITS,STRESS FORMULA 1 TABLET PO SCH (10:20)
[2019-03-10] MEDS: SENNA/DOCUSATE TABLET PO SCH (10:20)
[2019-03-10] MEDS: HEPARIN 25,000 UNITS/500ML PMX 500 ML IV PRN (10:30)
[2019-03-10 12:49] VITALS: BP 128/62
[2019-03-10 15:55] LABS: MICROSCOPIC INDICATED
[2019-03-10 16:09] LABS: CULTURE INDICATED? YES
[2019-03-10 19:26] VITALS: BP 183/96
[2019-03-10] MEDS ORDERED: OxyconTIN ER 10 MG TAB.ER ONE (21:11)
[2019-03-10] MEDS: HEPARIN 5,000 UNITS/ML, 1ML IV PRN (23:23)
[2019-03-10 23:27] VITALS: BP 150/77
[2019-03-11 03:50] VITALS: BP 128/83
[2019-03-11] MEDS: SODIUM CHLORIDE 0.9% 1,000 ML IV SCH (03:59)
[2019-03-11] MEDS: OMEPRAZOLE 20 MG CAPSULE.DR PO SCH (05:15)
[2019-03-11] MEDS: HYDROmorphone 2 MG/ML, 1ML IVPush PRN (05:15)
[2019-03-11] MEDS: LEVOTHYROXINE 50 MCG TABLET PO SCH (05:15)
[2019-03-11 05:46] LABS: BASOPHILS # (AUTO) 0.03 x10^3/uL (0-0.1); BASOPHILS % (AUTO) 0 % (0-1); EOSINOPHILS # (AUTO) 0.22 x10^3/uL (0-0.4); EOSINOPHILS % (AUTO) 2 % (1-7); LYMPHOCYTES # (AUTO) 1.03 x10^3/uL (1-3.4); LYMPHOCYTES % (AUTO) 8 % (22-44); MD NO; MEAN CORPUSCULAR HEMOGLOBIN 30.3 pg (27.0-34.8); MEAN CORPUSCULAR HGB CONC 32.7 g/dL (32.4-35.8); MEAN CORPUSCULAR VOLUME 92.6 fL (80-100); MEAN PLATELET VOLUME 8.4 fL (7.4-10.4); MONOCYTES # (AUTO) 1.04 x10^3/uL (0.2-0.8); MONOCYTES % (AUTO) 8 % (2-9); NEUTROPHILS # (AUTO) 11.43 x10^3/uL (1.8-6.8); NEUTROPHILS % (AUTO) 83 % (42-75); PLATELET COUNT 130 x10^3/uL (130-400); RED BLOOD COUNT 3.15 x10^6/uL (3.82-5.3); RED CELL DISTRIBUTION WIDTH 15.3 % (9.6-15.2)
[2019-03-11 05:56] LABS: ANION GAP 7 mmol/L (5-15); CALCIUM 6.8 mg/dL (8.5-10.1); CHLORIDE 111 mmol/L (98-107)
[2019-03-11 06:00] LABS: ALANINE AMINOTRANSFERASE 12 U/L (12-78); ALKALINE PHOSPHATASE 55 U/L (45-117); BILIRUBIN,TOTAL 0.4 mg/dL (0.2-1.0); CREATININE 1.25 mg/dL (0.55-1.02); TOTAL PROTEIN 4.6 g/dL (6.4-8.2)
[2019-03-11 07:30] VITALS: BP 139/75
[2019-03-11] MEDS ORDERED: LORazepam 0.5MG TABLET PO PRN (08:00)
[2019-03-11] MEDS ORDERED: OxyconTIN ER 10 MG TAB.ER ONE ×2 (08:57→21:08)
[2019-03-11] MEDS: FOLIC ACID 1 MG TABLET PO SCH (09:02)
[2019-03-11] MEDS: MULTIVITAMIN 1 TABLET PO SCH (09:03)
[2019-03-11] MEDS: MULTIVITS,STRESS FORMULA 1 TABLET PO SCH (09:06)
[2019-03-11] MEDS: SENNA/DOCUSATE TABLET PO SCH (09:06)
[2019-03-11] MEDS: SERTRALINE 50MG TABLET PO SCH (09:07)
[2019-03-11] MEDS: OXYcodone IR 5MG TABLET PO PRN (09:07)
[2019-03-11] MEDS: OxyconTIN ER 20 MG TAB.ER PO SCH ×3 (09:12→21:13)
[2019-03-11] MEDS: METOPROLOL TARTRATE 25 MG TABLET PO SCH ×3 (09:16→21:14)
[2019-03-11 13:34] VITALS: BP 136/78
[2019-03-11 20:25] VITALS: BP 107/59
[2019-03-11] MEDS: HEPARIN 25,000 UNITS/500ML PMX 500 ML IV PRN (21:11)
[2019-03-12 02:12] VITALS: BP 156/82
[2019-03-12] MEDS ORDERED: SODIUM CHLORIDE 0.9% 500 ML IV ONE (04:15)
[2019-03-12 04:53] LABS: MEAN CORPUSCULAR HGB CONC 32.7 g/dL (32.4-35.8); MEAN CORPUSCULAR VOLUME 91.8 fL (80-100); MEAN PLATELET VOLUME 8.7 fL (7.4-10.4); PLATELET COUNT 152 x10^3/uL (130-400); RED BLOOD COUNT 3.28 x10^6/uL (3.82-5.3); RED CELL DISTRIBUTION WIDTH 15.9 % (9.6-15.2)
[2019-03-12] MEDS: HEPARIN 5,000 UNITS/ML, 1ML IV PRN (05:38)
[2019-03-12] MEDS: OMEPRAZOLE 20 MG CAPSULE.DR PO SCH (05:46)
[2019-03-12] MEDS: LEVOTHYROXINE 50 MCG TABLET PO SCH (05:46)
[2019-03-12 05:52] LABS: BASOPHILS # (AUTO) 0.01 x10^3/uL (0-0.1); BASOPHILS % (AUTO) 0 % (0-1); EOSINOPHILS % (AUTO) 1 % (1-7); LYMPHOCYTES # (AUTO) 0.96 x10^3/uL (1-3.4); LYMPHOCYTES % (AUTO) 7 % (22-44); MD SCAN; MONOCYTES # (AUTO) 1.02 x10^3/uL (0.2-0.8); MONOCYTES % (AUTO) 7 % (2-9); NEUTROPHILS # (AUTO) 12.46 x10^3/uL (1.8-6.8); NEUTROPHILS % (AUTO) 86 % (42-75)
[2019-03-12] MEDS ORDERED: CEFTRIAXONE PMX 1GM/50ML 50 ML IV SCH (07:30)
[2019-03-12 08:15] VITALS: BP 165/92
[2019-03-12 08:35] LABS: HEMOGLOBIN A1C 5.6 % (4.2-6.3)
[2019-03-12] MEDS: SENNA/DOCUSATE TABLET PO SCH (09:00)
[2019-03-12 09:45] LABS: ANION GAP 8 mmol/L (5-15); CALCIUM 7.7 mg/dL (8.5-10.1); CHLORIDE 111 mmol/L (98-107); CREATININE 1.49 mg/dL (0.55-1.02)
[2019-03-12] MEDS: OXYcodone IR 5MG TABLET PO PRN ×3 (10:19→18:46)
[2019-03-12] MEDS: METOPROLOL TARTRATE 25 MG TABLET PO SCH ×2 (10:27→21:35)
[2019-03-12] MEDS: OxyconTIN ER 20 MG TAB.ER PO SCH ×2 (10:27→21:36)
[2019-03-12] MEDS: SODIUM CHLORIDE 0.9% 1,000 ML IV SCH (10:28)
[2019-03-12] MEDS: FOLIC ACID 1 MG TABLET PO SCH (10:29)
[2019-03-12] MEDS: MULTIVITAMIN 1 TABLET PO SCH (10:30)
[2019-03-12] MEDS: MULTIVITS,STRESS FORMULA 1 TABLET PO SCH (10:30)
[2019-03-12] MEDS: SERTRALINE 50MG TABLET PO SCH (10:30)
[2019-03-12 17:05] VITALS: BP 153/82
[2019-03-12 19:12] LABS: MICROSCOPIC NOT IND
[2019-03-12 21:06] VITALS: BP 171/89
[2019-03-12] MEDS ORDERED: OxyconTIN ER 10 MG TAB.ER ONE (21:14)
[2019-03-13] MEDS: SODIUM CHLORIDE 0.9% 1,000 ML IV SCH (00:07)
[2019-03-13 00:53] VITALS: BP 165/90
[2019-03-13 05:55] LABS: ALANINE AMINOTRANSFERASE 162 U/L (12-78); ALBUMIN 1.9 g/dL (3.4-5.0); ANION GAP 9 mmol/L (5-15); CALCIUM 7.2 mg/dL (8.5-10.1); CHLORIDE 109 mmol/L (98-107); CREATININE 1.01 mg/dL (0.55-1.02)
[2019-03-13 05:57] LABS: ALKALINE PHOSPHATASE 49 U/L (45-117); BILIRUBIN,TOTAL 0.3 mg/dL (0.2-1.0); TOTAL PROTEIN 4.8 g/dL (6.4-8.2)
[2019-03-13] MEDS: OMEPRAZOLE 20 MG CAPSULE.DR PO SCH (06:22)
[2019-03-13] MEDS: LEVOTHYROXINE 50 MCG TABLET PO SCH (06:23)
[2019-03-13 06:30] LABS: BASOPHILS # (AUTO) 0.02 x10^3/uL (0-0.1); BASOPHILS % (AUTO) 0 % (0-1); EOSINOPHILS # (AUTO) 0.18 x10^3/uL (0-0.4); EOSINOPHILS % (AUTO) 2 % (1-7); LYMPHOCYTES # (AUTO) 0.77 x10^3/uL (1-3.4); LYMPHOCYTES % (AUTO) 8 % (22-44); MD NO; MEAN CORPUSCULAR HEMOGLOBIN 30.6 pg (27.0-34.8); MEAN CORPUSCULAR HGB CONC 33.2 g/dL (32.4-35.8); MEAN PLATELET VOLUME 8.9 fL (7.4-10.4); MONOCYTES # (AUTO) 1.14 x10^3/uL (0.2-0.8); MONOCYTES % (AUTO) 11 % (2-9); NEUTROPHILS # (AUTO) 7.92 x10^3/uL (1.8-6.8); NEUTROPHILS % (AUTO) 79 % (42-75); PLATELET COUNT 138 x10^3/uL (130-400); RED BLOOD COUNT 2.67 x10^6/uL (3.82-5.3); RED CELL DISTRIBUTION WIDTH 15.5 % (9.6-15.2)
[2019-03-13 07:43] VITALS: BP 166/99
[2019-03-13] MEDS: MULTIVITAMIN 1 TABLET PO SCH (09:00)
[2019-03-13] MEDS: SENNA/DOCUSATE TABLET PO SCH (09:00)
[2019-03-13] MEDS: FOLIC ACID 1 MG TABLET PO SCH (09:00)
[2019-03-13] MEDS: MULTIVITS,STRESS FORMULA 1 TABLET PO SCH (09:00)
[2019-03-13] MEDS ORDERED: WARFARIN MODERAT DOSE PROTOCOL XX PRN (09:30)
[2019-03-13] MEDS ORDERED: OxyconTIN ER 10 MG TAB.ER ONE ×2 (10:21→20:00)
[2019-03-13] MEDS: SERTRALINE 50MG TABLET PO SCH (10:37)
[2019-03-13] MEDS: OxyconTIN ER 20 MG TAB.ER PO SCH ×2 (10:38→20:08)
[2019-03-13] MEDS: METOPROLOL TARTRATE 25 MG TABLET PO SCH ×2 (10:38→20:01)
[2019-03-13] MEDS: ENOXAPARIN 80 MG/0.8 ML SQ SCH ×3 (10:39→20:49)
[2019-03-13 11:21] LABS: INTERNATIONAL NORMALIZED RATIO 1.01 (0.93-1.1); PROTHROMBIN TIME 10.6 Seconds (9.6-11.5)
[2019-03-13 13:35] VITALS: BP 174/94
--- NOTE | 2019-03-13 14:43 | NUR ---
BOAT MECHANIC RECOMMENDATIONS: - Chopped diet with thin liquids - Upright at 90 degrees Addendum: 03/13/19 at [address] Amended: Links added.
[2019-03-13] MEDS ORDERED: LABETALOL 5 MG/ML SYRINGE IVPush PRN (15:00)
[2019-03-13 15:20] VITALS: BP 166/102
[2019-03-13] MEDS ORDERED: WARFARIN 5 MG TABLET PO-COUM ONE (18:00)
[2019-03-13 20:10] VITALS: BP 187/93
[2019-03-14 03:50] VITALS: BP 196/104
[2019-03-14 04:45] VITALS: BP 176/82
[2019-03-14] MEDS: OMEPRAZOLE 20 MG CAPSULE.DR PO SCH (05:23)
[2019-03-14] MEDS: LEVOTHYROXINE 50 MCG TABLET PO SCH (05:23)
[2019-03-14 06:37] LABS: INTERNATIONAL NORMALIZED RATIO 1.19 (0.93-1.1); PROTHROMBIN TIME 12.4 Seconds (9.6-11.5)
[2019-03-14 06:39] LABS: ANION GAP 9 mmol/L (5-15); CHLORIDE 110 mmol/L (98-107); CREATININE 0.78 mg/dL (0.55-1.02)
[2019-03-14 07:21] VITALS: BP 173/80
[2019-03-14 08:36] LABS: BASOPHILS # (AUTO) 0.01 x10^3/uL (0-0.1); BASOPHILS % (AUTO) 0 % (0-1); EOSINOPHILS # (AUTO) 0.19 x10^3/uL (0-0.4); EOSINOPHILS % (AUTO) 2 % (1-7); LYMPHOCYTES # (AUTO) 0.91 x10^3/uL (1-3.4); LYMPHOCYTES % (AUTO) 10 % (22-44); MD NO; MEAN CORPUSCULAR HEMOGLOBIN 29.5 pg (27.0-34.8); MEAN CORPUSCULAR HGB CONC 32.3 g/dL (32.4-35.8); MEAN CORPUSCULAR VOLUME 91.3 fL (80-100); MEAN PLATELET VOLUME 8.8 fL (7.4-10.4); MONOCYTES # (AUTO) 1.06 x10^3/uL (0.2-0.8); MONOCYTES % (AUTO) 12 % (2-9); NEUTROPHILS # (AUTO) 6.65 x10^3/uL (1.8-6.8); NEUTROPHILS % (AUTO) 75 % (42-75); PLATELET COUNT 144 x10^3/uL (130-400); RED BLOOD COUNT 2.91 x10^6/uL (3.82-5.3); RED CELL DISTRIBUTION WIDTH 15.1 % (9.6-15.2)
[2019-03-14] MEDS: OxyconTIN ER 20 MG TAB.ER PO SCH (09:00)
[2019-03-14] MEDS: FOLIC ACID 1 MG TABLET PO SCH (09:00)
[2019-03-14] MEDS: MULTIVITS,STRESS FORMULA 1 TABLET PO SCH (09:00)
[2019-03-14] MEDS: MULTIVITAMIN 1 TABLET PO SCH (09:00)
[2019-03-14] MEDS: SENNA/DOCUSATE TABLET PO SCH (09:00)
[2019-03-14] MEDS ORDERED: OxyconTIN ER 10 MG TAB.ER ONE (09:01)
[2019-03-14] MEDS: SERTRALINE 50MG TABLET PO SCH (09:23)
[2019-03-14] MEDS: METOPROLOL TARTRATE 25 MG TABLET PO SCH (09:23)
[2019-03-14] MEDS: ENOXAPARIN 80 MG/0.8 ML SQ SCH (10:28)
[2019-03-14 14:22] VITALS: BP 148/92
[2019-03-14] MEDS ORDERED: WARF5TAB PO-COUM (15:58)
[2019-03-14] MEDS ORDERED: ENOX80SY4 SQ (15:58)
[2019-03-14] MEDS ORDERED: FERR-51 PO (15:59)
[2019-03-14] MEDS ORDERED: WARFARIN 5 MG TABLET PO-COUM SCH (18:00)
== END 2019-03-14 18:10 | DRG 542 ==
LOC: ED 16:53 → EDIP 18:48 → 3NE 20:08
PROVIDERS: ADMIT Family Medicine; ATTEND Family Medicine
PROC: 0T9B70Z Drainage of Bladder with Drainage Device, Via Natural or Artificial Opening (ICD-10-PCS; principal; 2019-03-12)
DX: M80.052A Age-related osteoporosis with current pathological fracture, left femur, initial encounter for fracture (principal); J96.01 Acute respiratory failure with hypoxia; N17.0 Acute kidney failure with tubular necrosis; E44.0 Moderate protein-calorie malnutrition; I82.401 Acute embolism and thrombosis of unspecified deep veins of right lower extremity; L03.115 Cellulitis of right lower limb; R71.0 Precipitous drop in hematocrit; M80.051A Age-related osteoporosis with current pathological fracture, right femur, initial encounter for fracture; Z66 Do not resuscitate; E03.9 Hypothyroidism, unspecified; E11.9 Type 2 diabetes mellitus without complications; Z68.29 Body mass index [BMI] 29.0-29.9, adult; E78.00 Pure hypercholesterolemia, unspecified; F03.90 Unspecified dementia, unspecified severity, without behavioral disturbance, psychotic disturbance, mood disturbance, and anxiety; G40.909 Epilepsy, unspecified, not intractable, without status epilepticus; G89.29 Other chronic pain; I10 Essential (primary) hypertension; I48.2 Chronic atrial fibrillation; Z96.653 Presence of artificial knee joint, bilateral; W18.39XA Other fall on same level, initial encounter; K21.9 Gastro-esophageal reflux disease without esophagitis; M06.9 Rheumatoid arthritis, unspecified; M19.90 Unspecified osteoarthritis, unspecified site; S50.01XA Contusion of right elbow, initial encounter; R13.10 Dysphagia, unspecified; W01.0XXA Fall on same level from slipping, tripping and stumbling without subsequent striking against object, initial encounter; Z79.52 Long term (current) use of systemic steroids; Z78.9 Other specified health status; Z79.891 Long term (current) use of opiate analgesic; Z79.899 Other long term (current) drug therapy; Z86.73 Personal history of transient ischemic attack (TIA), and cerebral infarction without residual deficits; Z87.01 Personal history of pneumonia (recurrent); Z87.891 Personal history of nicotine dependence; Z99.81 Dependence on supplemental oxygen; Z88.7 Allergy status to serum and vaccine; Y93.89 Activity, other specified; Y92.89 Other specified places as the place of occurrence of the external cause; Y99.8 Other external cause status
CPT/HCPCS: 36415; 71045; 72192; 74176; 78582; 80048; 80053; 81001; 81003; 83036; 83735; 84439; 84443; 85014; 85018; 85025; 85520; 85610; 85730; 87077; 87086; 87184; 87186; 93005; 96372; 96374; 96375; 99285; G0378; J0696; J1170; J1644; J1650; J2405; A9540; C9898; J2270; J7030; J7040; J7512